=== PATIENT | female | born 1960 | race Caucasian/White ===

== ENCOUNTER 2021-01-21 04:51 | Day surgery (SDC) | payer OTHER ==
[2021-01-17 16:27] VITALS: BMI 29.4
[2021-01-21 09:30] LABS: INR 0.91 (0.83-1.09); PROTHROMBIN TIME (PATIENT) 10.6 SEC (9.7-13.0)
[2021-01-21 09:33] LABS: ACTIVATED PTT 33.1 SECONDS (25.2-36.5)
[2021-01-21] MEDS ORDERED: BUPIVACAINE HCL/PF 0.5% (5MG/ML) 10 ML VIAL ONE (11:36)
[2021-01-21] MEDS ORDERED: ceFAZolin SODIUM 1 GM VIAL IVPB ONE (12:24)
[2021-01-21] MEDS ORDERED: KETOROLAC TROMETHAMINE 30 MG/1 ML VIAL ONE (12:28)
[2021-01-21] MEDS ORDERED: MIDAZOLAM HCL 2 MG/2 ML SINGLE DOSE VIAL ONE (12:28)
[2021-01-21] MEDS ORDERED: DEXAMETHASONE SOD PHOSPHATE 4 MG/1 ML VIAL ONE (12:28)
[2021-01-21] MEDS ORDERED: PROPOFOL 20 ML ONE (12:28)
[2021-01-21] MEDS ORDERED: ONDANSETRON 4 MG/2 ML VIAL ONE (12:28)
[2021-01-21] MEDS ORDERED: ceFAZolin SODIUM 1 GM VIAL ONE (12:28)
[2021-01-21] MEDS ORDERED: BUPIVACAINE HCL/PF 0.5% (5 MG/ML) 30 ML VIAL IJ ONE (12:41)
[2021-01-21] MEDS ORDERED: ONDANSETRON 4 MG/2 ML VIAL IVPUSH PRN (13:36)
[2021-01-21] MEDS ORDERED: oxyCODONE HCL 5 MG TABLET PO PRN ×2 (13:36)
[2021-01-21] MEDS ORDERED: LACTATED RINGERS SOLUTION 1,000 ML IV SCH (13:45)
[2021-01-21 15:55] VITALS: BP 131/74; PULSE 96; TEMP 97.5
== END 2021-01-21 15:58 | disposition home or self-care (01) ==
LOC: JASU-SURG 04:51
PROVIDERS: ATTEND Orthopaedic Surgery
PROC: 0SBD4ZZ Excision of Left Knee Joint, Percutaneous Endoscopic Approach (ICD-10-PCS; 2021-01-21)
PROC: 0SBD4ZZ Excision of Left Knee Joint, Percutaneous Endoscopic Approach (ICD-10-PCS; principal; 2021-01-21 10:30)
DX: S83.282A Other tear of lateral meniscus, current injury, left knee, initial encounter (principal); S83.242A Other tear of medial meniscus, current injury, left knee, initial encounter; X58.XXXA Exposure to other specified factors, initial encounter; Y93.9 Activity, unspecified; Y92.9 Unspecified place or not applicable; Y99.9 Unspecified external cause status; M17.12 Unilateral primary osteoarthritis, left knee
CPT/HCPCS: 36415; 85610; 85730; 94760; 97116-GP

== ENCOUNTER 2023-04-27 16:48 | Emergency (ER) | payer BC ==
[2023-04-27 17:04] VITALS: BP 148/74; PULSE 110; RESP 18; TEMP 98; BMI 26.6
== END 2023-04-27 20:57 | disposition home or self-care (01) ==
LOC: JERFT 16:48
DX: S50.11XA Contusion of right forearm, initial encounter (principal); X58.XXXA Exposure to other specified factors, initial encounter
CPT/HCPCS: 73090-TC-RT-FY; 99283-25